=== PATIENT | male | born 1990 ===

== ENCOUNTER 2018-10-26 11:44 | Outpatient (REF) | payer OTHER, SELFPAY ==
[2018-10-28 09:55] LABS: HIV-1/2 Ag & Ab Screen Negative (NEGAT)
[2018-10-28 13:38] LABS: Chlamydia Result Negative; GC Result Negative; Specimen Description URINE
== END 2018-10-26 12:04 ==
LOC: NCHCN 11:44
PROVIDERS: PCP Physician Assistant Medical; Visit Provider Nurse Practitioner Family
DX: Z11.3 Encounter for screening for infections with a predominantly sexual mode of transmission (principal); Z11.4 Encounter for screening for human immunodeficiency virus [HIV]
CPT/HCPCS: 87389; 87491; 87591